=== PATIENT | female | born 1970 | race American Indian/Alaskan Native ===

== ENCOUNTER 2017-11-22 17:31 | Emergency (ER) | payer SELFPAY ==
[2017-11-22 19:40] VITALS: BP 102/73
[2017-11-22 20:33] LABS: HCG Qualitative,Urine Negative (Negative)
[2017-11-22 20:36] LABS: Bilirubin,Urine NEG (Negative); Blood,Urine NEG (Negative); Nitrite,Urine NEG (Negative); Protein,Urine <15 mg/dL mg/dL (Negative); Urobilinogen,Urine < 2.0 mg/dL (<2.0); WBC,Urine < 1.0 /HPF (0.0-6.0)
[2017-11-22 20:42] LABS: Color,Urine Straw (Yellow); RBC,Urine < 1.0 /HPF (0.0-6.0)
== END 2017-11-22 20:50 | disposition left against medical advice (07) ==
LOC: ED 17:31
DX: H53.8 Other visual disturbances (principal); Z53.21 Procedure and treatment not carried out due to patient leaving prior to being seen by health care provider
CPT/HCPCS: 81001; 81025; 82962

== ENCOUNTER 2021-02-27 09:32 | Outpatient (CLI) | payer BC ==
[2021-02-27 10:21] LABS: Alanine Aminotransferase 10 units/L (7-56); Albumin 3.8 g/dL (3.9-5); Blood Urea Nitrogen 9 mg/dL (7-17); Calcium 8.4 mg/dL (8.4-10.2); Hemolysis Index 0
[2021-02-27 10:26] LABS: BUN/Creatinine Ratio 13
== END 2021-02-27 09:33 | disposition home or self-care (01) ==
LOC: LAB 09:32
PROVIDERS: ATTEND Specialist
DX: G61.9 Inflammatory polyneuropathy, unspecified (principal)
CPT/HCPCS: 36415; 80053; 82306; 82607; 83921; 84165; 84443; 85652; 86038; 86225; 86334; 86592